=== PATIENT | male | born 1975 | race Caucasian/White ===

== ENCOUNTER 2018-01-22 07:30 | Emergency (ER) | payer BC, SELFPAY ==
--- NOTE | 2018-01-22 08:50 | DI.COMBO_ITS ---
SYMPTOMS/DIAGNOSIS: TRAUMA S/P FALL NONCONTRAST HEAD CT: There is opacification of the right frontal sinus and mucosal thickening and partial opacification of multiple ethmoid sinuses, as well as the maxillary sinuses. The findings are consistent with chronic sinus disease. The mastoid air cells appear clear. No intracranial hemorrhage, mass or infarct is seen. There is no evidence of skull fracture. The ventricles are normal in size. IMPRESSION: Sinus disease. No acute abnormality. CT OF THE CERVICAL SPINE: There is no evidence of fracture or subluxation. There has been an anterior fusion at the C6-7 level with hardware in place. The remaining disc spaces are well maintained. There is no paraspinal hematoma. IMPRESSION: Previous anterior cervical fusion at C6-7. No acute abnormality. LEFT WRIST: There is a nondisplaced fracture extending through the radial styloid to the articular surface toward the ulnar aspect. The distal ulna appears intact. There is a small bony fragment seen on the lateral view posterior at the carpal region. This could represent an avulsion fracture of indeterminate age. IMPRESSION: Nondisplaced intraarticular fracture of the distal radius. Small fracture fragment of the dorsal carpal region of indeterminate age. CT OF THE CHEST, ABDOMEN AND PELVIS: CHEST: There is no evidence of pneumothorax, pleural or pericardial effusions. There is mild posterior atelectasis. No rib fractures or spinal fractures are seen. The heart size is normal. ABDOMEN AND PELVIS: A noncontrast exam was performed. The liver, gallbladder, spleen, pancreas, kidneys and adrenals are unremarkable. There is no bowel dilatation or wall thickening. The appendix appears normal. The bladder and prostate are unremarkable. There is no free air or free fluid. No fractures are identified. IMPRESSION: No acute abnormality in the chest, abdomen or pelvis.
[2018-01-22] MEDS: Acetaminophen 500 MG TAB 1000 MG PO (08:55)
[2018-01-22] MEDS: oxyCODONE 10 MG TAB PO (09:20)
== END 2018-01-22 10:01 | disposition home or self-care (01) ==
LOC: ER 12:09
PROVIDERS: Emergency Provider Emergency Medicine; PCP Emergency Medicine
DX: S52.572A Other intraarticular fracture of lower end of left radius, initial encounter for closed fracture (principal); S09.90XA Unspecified injury of head, initial encounter; S29.9XXA Unspecified injury of thorax, initial encounter; S39.91XA Unspecified injury of abdomen, initial encounter; S16.1XXA Strain of muscle, fascia and tendon at neck level, initial encounter; W17.89XA Other fall from one level to another, initial encounter
CPT/HCPCS: 25600; 71250; 99285; 70450; 72125; 73110; 74176; 99284; L3908

== ENCOUNTER 2018-12-23 09:45 | Outpatient (CLI) | payer OTHER, SELFPAY ==
[2018-12-23 13:12] LABS: Anion Gap 9.4 mmol/L (3-11); BUN 17 mg/dL (7-18); CO2 26.6 mmol/L (21.0-32.0); CREATININE 0.96 mg/dL (0.70-1.30); Calcium 9.6 mg/dL (8.5-10.1); Chloride 102 mmol/L (98-107); Glucose 90 mg/dL (70-100); Potassium 4.5 mmol/L (3.5-5.1); Sodium 138 mmol/L (136-145)
== END 2018-12-23 10:05 ==
PROVIDERS: PCP Emergency Medicine; Visit Provider Emergency Medicine
DX: I10 Essential (primary) hypertension (principal)
CPT/HCPCS: 36415; 80048

== ENCOUNTER 2020-03-08 08:17 | Outpatient (CLI) | payer OTHER, SELFPAY ==
[2020-03-11 22:40] LABS: Patient Race White; SARS-CoV-2 RNA Undetected (Undetected); SARS-CoV-2 Specimen Source Nasopharynx
== END 2020-03-08 08:37 ==
PROVIDERS: PCP Emergency Medicine; Visit Provider Surgery
DX: Z11.59 Encounter for screening for other viral diseases (principal)
CPT/HCPCS: U0003

== ENCOUNTER 2020-03-29 01:34 | Outpatient (CLI) | payer OTHER, SELFPAY ==
[2020-03-29 12:43] LABS: Anion Gap 9.3 mmol/L (3-11); BUN 19 mg/dL (7-18); CO2 28.7 mmol/L (21.0-32.0); CREATININE 1.03 mg/dL (0.70-1.30); Calcium 9.5 mg/dL (8.5-10.1); Chloride 102 mmol/L (98-107); Glucose 99 mg/dL (74-106); Potassium 4.7 mmol/L (3.5-5.1); Sodium 140 mmol/L (136-145)
== END 2020-03-29 01:54 ==
PROVIDERS: PCP Nurse Practitioner Adult Health; Visit Provider Nurse Practitioner Adult Health
DX: I10 Essential (primary) hypertension (principal)
CPT/HCPCS: 36415; 80048

== ENCOUNTER 2020-04-18 08:43 | Emergency (ER) | payer OTHER, SELFPAY ==
[2020-04-18 08:53] VITALS: BP 153/98; PULSE 95; RESP 18; TEMP 36.4; O2SAT 99
--- NOTE | 2020-04-18 09:00 | DI.CT_ITS ---
EXAM: CT LUMBAR SPINE WO CLINICAL HISTORY: severe low back pain, prior surgery remote, L2 lt. TECHNIQUE: Imaging Protocol: Axial computed tomography images with coronal and sagittal reformatted images were created and reviewed CONTRAST MATERIAL: Intravenous: No IV contrast Oral: No oral contrast COMPARISON: MR MRI - LUMBAR SPINE WO CONTRAST from 02/19/2011 FINDINGS: Bones: There is no evidence of fracture. No lytic osseous lesions. With respect to the individual l evel; T12-L1: No disc herniation or central canal stenosis. No obvious foraminal stenosis. No facet arth ropathy. L1-2: No disc herniation or central canal stenosis. L2-3: No disc herniations or bulges are present. L3-4: Normal disc height. There is relatively symmetrical annular bulging without dominant disc pro trusion. There is mild central spinal canal stenosis. There is no significant foraminal stenosis on the right side. Mild foraminal stenosis on the left side. No significant facet arthropathy. L4-5: Normal disc height. There is annular bulging and there is a xcwtvmj-cjak-cuosf disc protrusio n, more evident on the axial than on the sagittal images. Mild bilateral foraminal stenosis. There is moderate central spinal canal stenosis.. Mild facet degenerative changes. L5-S1: At this level there is advanced chronic disc space narrowing and vacuum phenomenon seen withi n the small amount of retained remaining disc material. There also appears to be evidence of probabl e right sided partial laminectomy.. Mild central canal stenosis. No obvious disc herniation evident at this level. There is bilateral vertical foraminal stenosis due to the disc height loss here, thi s resulted in significant compression of the exiting nerve roots bilaterally. Soft Tissues: The visualized SI joints and sacrum are will maintained. The paraspinal soft tissues a re unremarkable. IMPRESSION: 1. There appears to be a cucvlwa-ndhe-toqjc disc herniation at L4-5 level, more evident on the axial than sagittal images. Recommend follow-up MRI. 2. There is an element of spinal canal stenosis at L3-4 and L4-5 levels, most evident at L4-5 where t here is also an element of bilateral mild foraminal stenosis. 3. At L5-S1 level there is significant bilateral vertical foraminal stenosis due to advanced chronic disc height loss at this level, this resulting in compression of the exiting nerve roots by the overl nereida L5 pedicles and subjacent annulus. 4. There is subtle evidence of prior possible partial laminectomy on the right side at L5-S1 level. Also mild central canal stenosis at this level. RADIATION DOSE DELIVERED: 672.19mGy.cm Total DLP DATA REPOSITORY: All CT scans at this facility are submitted to the National Radiology Data Registry (NRDR) Dose Index Registry (DIR) with the [employer] (ACR). RADIATION OPTIMIZATION: All CT scans at this facility use at least one of these dose optimization te chniques: automated exposure control; mA and/or kV adjustment per patient size (includes targeted exa ms where dose is matched to clinical indication); or iterative reconstruction.
--- NOTE | 2020-04-18 09:07 | W.ED.GENAD ---
Discharge Plan Disposition Patient Disposition: HOME Condition: Stable Discharge Details Clinical Impression: Low back pain, Spasm of back muscles Primary Care Provider: Nannette Ascencio ED Provider: Enoc Ambrocio Home Meds and New Rx's Prescriptions: New diazepam [Valium] 5 mg tablet 2.5 mg PO BID PRN (Reason: muscle spasm) Qty: 14 RF: 0 Continued ibuprofen 200 MG tablet 800 mg PO TID PRNRF: 0 amlodipine 5 mg tablet 5 mg PO DAILY Qty: 90 RF: 3 losartan 50 mg tablet 50 mg PO DAILY Qty: 90 RF: 3 Discharge Instructions Instructions: Diazepam (By mouth), Lumbar Disc Herniation (ED) Additional Instructions: Please take ibuprofen over the counter. Take 600mg by mouth every 6 hours as needed for pain. Please take acetaminophen (tylenol) - 650mg every 6 hours by mouth as needed for pain. Use ysmd-qou-nyeywnp lidocaine patch? dose according to label. Please follow-up with your orthopedic spinal specialist. Be sure to discuss CT imaging results. Call on Wednesday. Please contact your primary care physician to arrange follow-up. Return to the ER for any worsening or new concerning symptoms. Referrals: Nannette Ascencio, ELECT[employer] MAINTENANCE WORKER [Primary Care Provider] - Medical Decision Making 44-year-old male status post remote lumbar spinal surgery with atraumatic low back pain over the past 1 week now with spasm and tenderness left lumbar paraspinal. Neurologically intact with no saddle anesthesia. No bowel or bladder dysfunction. Given prior surgery and severity of pain, consider disc herniation. Toradol 30 mg IM, lidocaine patch, Tylenol 650 mg, and Valium 5 mg orally provided for pain and spasm. CT of the lumbar spine reviewed and interpreted by radiology:FINDINGS: Vertebrae: No acute fracture. Mild retrolisthesis of L5 on S1. L5-S1 shows generalized disc bulge, marginal osteophytes, disc height loss, vacuum disc, and endplate sclerosis. There is probable moderate to severe neural foraminal narrowing bilaterally. L1-L2: L1-L2 shows no significant spinal stenosis or neural foraminal narrowing. L2-L3: L2-L3 shows no significant spinal stenosis or neural foraminal narrowing. L3-L4: L3-L4 shows generalized disc bulge and mild marginal osteophyte with mild facet degenerative changes. There is mild right and tphw-pq-dofbzxta left neural foraminal narrowing and mild spinal stenosis. L4-L5: L4-L5 shows generalized disc bulge, facet degenerative changes, and thickening of ligamentum flavum. There is aqiz-hg-gciyeory bilateral neural foraminal narrowing and at least moderate spinal stenosis L5-S1: Mild retrolisthesis of L5 on S1. L5-S1 shows generalized disc bulge, marginal osteophytes, disc height loss, vacuum disc, and endplate sclerosis. There is probable moderate to severe neural foraminal narrowing bilaterally. Soft tissues: IMPRESSION: 1. No acute fracture. 2. Degenerative changes as described. More detailed evaluation could be accomplished with MRI if desired. Patient reassessed and noted improvement in pain. Plan for discharge with outpatient follow-up with a spinal specialist. CT results were reviewed with and provided to the patient. I will prescribe Valium and encouraged him to use lidocaine patches and NSAID. Usual customary discharge instructions were reviewed with patient and his . HPI General Mode of arrival: ambulatory. Date/Time Provider Initiated Documentation: 04/18/20 09:02. Limitations to Documentation: no limitations. Information obtained by: patient. HPI Narrative: 44-year-old male with history of hypertension, prior lumbar go, status post remote lumbar spinal surgery, here with back pain persistent over the past 1 week. Pain is localized to lumbar spine and slightly worse on the left side. Pain is severe and worse when he bends over and moving from lying to sitting position. He has no associated numbness or tingling of his lower extremities. No bowel or bladder abnormality. No fever. Related Data Home Medications Medication Instructions Recorded Confirmed ibuprofen 800 mg PO TID PRN 10/12/12 04/18/20 amlodipine 5 mg tablet 5 mg PO DAILY #90 tab 12/12/19 04/18/20 losartan 50 mg tablet 50 mg PO DAILY #90 tab 02/06/20 04/18/20 diazepam [Valium] 2.5 mg PO BID PRN #14 tab 04/18/20 Previous Rx's Medication Instructions Recorded amlodipine 5 mg tablet 5 mg PO DAILY #90 tab 12/12/19 losartan 50 mg tablet 50 mg PO DAILY #90 tab 02/06/20 diazepam [Valium] 2.5 mg PO BID PRN #14 tab 04/18/20 Allergies Allergy/AdvReac Type Severity Reaction Status Date / Time No Known Drug Allergies Allergy Verified 04/18/20 09:01 General Stated Complaint: Nk/Back Pain SAMM: 3 Review of Systems All systems reviewed & are unremarkable except as noted in HPI and below Musculoskeletal Musculoskeletal: Reports as per HPI Neurologic Neurologic: Reports as per HPI [facility] Medical History Carpal tunnel syndrome (06/06/13) CSD (cat scratch disease) (04/13/13) Knee pain Lumbago L4-5, S1 DISC; FUSED; S/P EPIDURAL Surgical History H/O lymph node biopsy L axillary; r/o lymphoma; +cat scratch fever History of back surgery L4-5, L5-S1 Disc Herniation. S/P Epidural, Known disc extrusion on MRI 2010; Dr. Edmonds, [facility] History of carpal tunnel release R (dominant side) S/P cervical spinal fusion (12/07/17) c6-c7 2014; Dr. Edmonds [facility] [place] teeth extracted Family History Mother No problems noted. Sister No problems noted. Son No problems noted. Father Hypertension Social History Smoking/Tobacco Use Status: Former Tobacco Use Pack-years: 10 Tobacco: How many years used: 10 Smoking risk assessment performed?: Yes Alcohol Intake: current Alcohol Intake frequency: a few times a week Drug use: Never Substance use type: does not use Caregiver/Support person: No Foster care: No Household members: spouse and children Housing: house Number of Children: 1 Do you need help understanding health information?: Never current occupation: [employer] Pets and animals: Yes Pets and animals: cat(s) and dog(s) Sexually active: Yes Do you think of yourself as: straight/heterosexual Current gender identity: male What is your relationship status?: How often do you talk on the phone with friends or family?: three or more times per week How often do you get together with friends or relatives?: three or more times per week How often do you attend episcopalian or zoroastrianism services?: decline to answer Do you belong to any clubs or organized social groups?: no Panel score (0-1 are the most socially isolated patients): 2 What type of physical activity do you participate in: weight lifting Duration: 15-30 minutes/day Frequency: 1-2 times per week Nadia/Congregation: None Special nadia needs: No Seatbelt use: always Drive intox or ride w/intox six horse hitch driver: No Do you feel safe at home: Yes Do you feel safe in your relationship?: Yes Exam Const General: cooperative and no acute distress HENMT Mouth: moist mucous membranes Eyes Conjunctivae: normal conjunctivae Resp Auscultation: clear to auscultation bilaterally, no rales, no rhonchi and no wheezes Cardio Rate: regular rate and not tachycardic Rhythm: regular rhythm GI Palpation: soft, not firm, not rigid and nontender Back/Spine/Pelvis Back: No erythema, No warmth and No ecchymosis Thoracic/Lumbar Spine: paraspinal tenderness (left lumbar), No thoracic spinal tenderness, lumbar spinal tenderness (L2) and other (spasm left lumbar) Skin General skin exam: no rashes or lesions noted Neuro General: patient alert, patient awake, patient oriented x3 and tone normal Cognition: normal cognition Motor: strength 5/5 throughout (bilateral LEs) Sensory Exam: no sensory deficits noted (bilateral LEs) and other (no saddle anesth) Extrem General: no edema Psych Appearance: grossly normal Mental Status: mental status grossly normal Course Vital Signs Vital signs: Vital Signs Temperature 36.4 C L 04/18/20 08:53 Pulse 95 H 04/18/20 08:53 Respiratory Rate 18 04/18/20 08:53 Blood Pressure 153/98 H 04/18/20 08:53 Pulse Oximetry 99 04/18/20 08:53 Temperature 36.4 C L 04/18/20 08:53 Temperature Source Temporal Artery Scan 04/18/20 08:53 Pulse 95 H 04/18/20 08:53 Respiratory Rate 18 04/18/20 08:53 Respiratory Effort Non-Labored 04/18/20 08:57 Blood Pressure 153/98 H 04/18/20 08:53 Blood Pressure Position Standing 04/18/20 08:53 Pulse Oximetry 99 04/18/20 08:53 Oxygen Delivery Method Room Air 04/18/20 08:53 Oxygen Flow Rate 0 04/18/20 08:53 Pain Level 10 04/18/20 08:53
[2020-04-18] MEDS: diazePAM 5 MG TAB PO ×2 (09:09→11:11)
[2020-04-18] MEDS: Acetaminophen 325 MG TAB 650 MG PO (09:09)
[2020-04-18] MEDS: Ketorolac 30 MG/ML VIAL IM (09:11)
[2020-04-18] MEDS: Lidocaine 5% Patch 1 PATCH TP (09:13)
--- NOTE | 2020-04-18 10:07 | DI.VRAD_ITS ---
PROCEDURE INFORMATION: Exam: CT Lumbar Spine Without Contrast Exam date and time: 04/18/2020 9:04 AM Age: 44 years old Clinical indication: Low back pain; Patient HX: Increase in strenuous activity recently TECHNIQUE: Imaging protocol: Computed tomography images of the lumbar spine without contrast. Radiation optimization: All CT scans at this facility use at least one of these dose optimization techniques: automated exposure control; mA and/or kV adjustment per patient size (includes targeted exams where dose is matched to clinical indication); or iterative reconstruction. COMPARISON: No relevant prior studies available. FINDINGS: Vertebrae: No acute fracture. Mild retrolisthesis of L5 on S1. L5-S1 shows generalized disc bulge, marginal osteophytes, disc height loss, vacuum disc, and endplate sclerosis. There is probable moderate to severe neural foraminal narrowing bilaterally. L1-L2: L1-L2 shows no significant spinal stenosis or neural foraminal narrowing. L2-L3: L2-L3 shows no significant spinal stenosis or neural foraminal narrowing. L3-L4: L3-L4 shows generalized disc bulge and mild marginal osteophyte with mild facet degenerative changes. There is mild right and hgbh-ns-rvzeqggq left neural foraminal narrowing and mild spinal stenosis. L4-L5: L4-L5 shows generalized disc bulge, facet degenerative changes, and thickening of ligamentum flavum. There is fcmz-ul-pwpntaxz bilateral neural foraminal narrowing and at least moderate spinal stenosis L5-S1: Mild retrolisthesis of L5 on S1. L5-S1 shows generalized disc bulge, marginal osteophytes, disc height loss, vacuum disc, and endplate sclerosis. There is probable moderate to severe neural foraminal narrowing bilaterally. Soft tissues: IMPRESSION: 1. No acute fracture. 2. Degenerative changes as described. More detailed evaluation could be accomplished with MRI if desired. Dictated and Authenticated by: Gayathri Parisi MD. Ordering:PHONG Stubbs MD
== END 2020-04-18 11:00 | disposition home or self-care (01) ==
PROVIDERS: Emergency Provider Student in an Organized Health Care Education/Training Program; PCP Nurse Practitioner Adult Health
DX: M62.830 Muscle spasm of back (principal); M54.5 Low back pain; I10 Essential (primary) hypertension
CPT/HCPCS: 96372; 99284; 72131; J1885

== ENCOUNTER 2020-04-22 11:31 | Outpatient (CLI) | payer OTHER, SELFPAY ==
--- NOTE | 2020-04-22 08:15 | DI.MRI_ITS ---
EXAM: MR LUMBAR SPINE WO/W CLINICAL HISTORY: spinal stenosis, worsening pain,h/o lumbar surgery, ? hnp. TECHNIQUE: Multiplanar multisequence MRI was performed. COMPARISON: MR MRI - LUMBAR SPINE WO CONTRAST from 02/19/2011 FINDINGS: MR examination lumbosacral spine was performed according to the usual protocol with additional pre an d post contrast T1 fat sat imaging in axial and sagittal planes. There is a prior right laminectomy at L5-S1. There are mild Shayy discal vertebral signal changes at L5-S1 and loss of disc height at this level as well. There is slight retrolisthesis of L5 on S1. Th is causes slight deformity of the contour of the anterior spinal canal without evidence focal nerve r oot impingement. There is mild bilateral neural foraminal narrowing at L5-S1. Moderate bilateral fa cet hypertrophy also noted at this level. At L4-5, there is a prominent disc bulge with apparent mild superimposed central disc herniation. Th ere is mild central canal spinal stenosis at this level. No significant neural foraminal stenosis se en. At L3-4, there is a moderate disc bulge without evidence of a focal disc herniation. No bony central canal spinal stenosis or neural foraminal stenosis. No significant findings seen at the upper lumbar or lower thoracic levels. Conus medullaris appears intact. No enhancing lesion identified on post contrast imaging. No evidence of abscess or osteomyelitis. IMPRESSION: Post-laminectomy changes, with mild bilateral neural foraminal narrowing at L5-S1. Disc bulge and small central disc herniation with mild central canal spinal stenosis at L4-5. No other significant findings. DATA REPOSITORY:
[2020-04-22 13:00] LABS: CREATININE 1.04 mg/dL (0.70-1.30)
[2020-04-22] MEDS: Normal Saline Flush 10 ML SYR IVP (13:16)
[2020-04-22] MEDS: Gadoterate meglumine 20 ML VIAL 17 ML IVP (13:16)
== END 2020-04-22 11:51 ==
PROVIDERS: PCP Nurse Practitioner Adult Health; Visit Provider Surgery
DX: M48.061 Spinal stenosis, lumbar region without neurogenic claudication (principal); M51.26 Other intervertebral disc displacement, lumbar region; M48.07 Spinal stenosis, lumbosacral region; Z01.818 Encounter for other preprocedural examination; M54.5 Low back pain
CPT/HCPCS: 72158; 82565

== ENCOUNTER 2020-08-29 01:51 | Outpatient (CLI) | payer OTHER, SELFPAY ==
[2020-08-30 16:18] LABS: COVID-19 RT-PCR UVMMC Result Negative (Negative)
== END 2020-08-29 01:52 | disposition home or self-care (01) ==
LOC: LBO 01:51
PROVIDERS: PCP Nurse Practitioner Adult Health; Visit Provider Surgery
DX: Z20.822 Contact with and (suspected) exposure to COVID-19 (principal)
CPT/HCPCS: U0003

== ENCOUNTER 2021-01-03 02:05 | Outpatient (CLI) | payer OTHER, SELFPAY ==
[2021-01-03 13:24] LABS: BUN 12 mg/dL (7-18); Calcium 9.3 mg/dL (8.5-10.1); Chloride 105 mmol/L (98-107); Glucose 95 mg/dL (74-106); Potassium 4.4 mmol/L (3.5-5.1); Sodium 140 mmol/L (136-145)
== END 2021-01-03 02:06 | disposition home or self-care (01) ==
LOC: LOS 02:06
PROVIDERS: PCP Nurse Practitioner Adult Health; Visit Provider Nurse Practitioner Adult Health
DX: I10 Essential (primary) hypertension (principal); R79.89 Other specified abnormal findings of blood chemistry
CPT/HCPCS: 36415; 80048

== ENCOUNTER 2021-04-05 08:53 | Outpatient (CLI) | payer OTHER, SELFPAY ==
[2021-04-06 15:03] LABS: COVID-19 RT-PCR UVMMC Result Negative (Negative)
== END 2021-04-05 08:54 | disposition home or self-care (01) ==
PROVIDERS: PCP Nurse Practitioner Adult Health; Visit Provider Surgery
DX: Z20.822 Contact with and (suspected) exposure to COVID-19 (principal)
CPT/HCPCS: U0003

== ENCOUNTER 2021-04-30 09:14 | Outpatient (CLI) | payer OTHER, SELFPAY ==
[2021-04-30 11:45] LABS: Source Nasal/Nares
[2021-04-30 12:29] LABS: COVID-19 PCR Negative (Negative)
== END 2021-04-30 09:15 | disposition home or self-care (01) ==
LOC: LBO 09:14
PROVIDERS: PCP Nurse Practitioner Adult Health; Visit Provider Surgery
DX: Z20.822 Contact with and (suspected) exposure to COVID-19 (principal); R05.9 Cough, unspecified
CPT/HCPCS: 87635

== ENCOUNTER 2021-06-27 01:20 | Outpatient (CLI) | payer BC, SELFPAY ==
[2021-06-27 11:20] LABS: Source Nasal/Nares
[2021-06-27 13:51] LABS: COVID-19 PCR Negative (Negative)
== END 2021-06-27 01:21 | disposition home or self-care (01) ==
LOC: LBO 01:20
PROVIDERS: PCP Nurse Practitioner Adult Health; Visit Provider Surgery
DX: Z20.822 Contact with and (suspected) exposure to COVID-19 (principal); Z01.818 Encounter for other preprocedural examination
CPT/HCPCS: 87635

== ENCOUNTER 2021-06-30 06:19 | Day surgery (SDC) | payer BC, SELFPAY ==
[2021-06-30 06:34] VITALS: BP 127/82; PULSE 67; RESP 18; TEMP 36.6; O2SAT 98
--- NOTE | 2021-06-30 06:37 | COLE_ITS ---
Colonoscopy Report Date of procedure: 06/30/21 Pre-op diagnosis general: Colon Cancer Screening Post-op diagnosis procedure note: other (colorectal polyps) Procedure: Colonoscopy with polypectomy Surgeon: Karen Ceron Anesthesia Type: General:No Airway (Jaylin Calderon CRNA) Estimated blood loss (mL): 3 Pathology: other (Transverse polyp and rectal polyp) Complications: None Disposition: same day Indications: The patient is here for Colonoscopy pre-op. He has no family hi story of colon cancer. He has not had any bowel habit changes. -Discussed colonoscopy bowel prep as well as the procedure. Discussed possible complications of the procedure to include bleeding, pain, perforation, missed small lesion/polyp, sore throat, aspiration and adverse reaction to the medications. Questions were answered to patient?s satisfaction. No guarantees were implied or given. Prep: Miralax/Dulcolax Procedure Start Time: 07:29 Procedure End Time: 07:51 Retraction Time: 12 minutes Findings: 2 small polyps Procedure Description: After informed consent was obtained the patient was taken to the procedure room and placed in a left decubitous position. Monitors were applied and a time out was done. The patients name, date of , procedure, allergies to medications and metal in their body was reviewed. The patient was then sedated. Once sedated and comfortable a rectal exam was done. External exam was normal. Internal exam revealed a normal sphincter tone and no palpable masses. The prostate felt smooth and slightly enlarged. The scope was then introduced and retro-flexed. No internal hemorrhoids, polyps or masses were identified on retro-flexion. The scope was then advanced to the cecum without difficulty. The ileocecal valve and appendiceal orifice were identified. The prep was adequate. The scope was then slowly retracted over [] minutes back into the rectum. Polyps were removed with cold forceps in the Transverse colon and rectum. There was no diverticulosis noted. The scope was removed and the patient was woken up and taken back to Same day surgery in s table condition. The patient tolerated the procedure well and there were no immediate complications. Follow up: The patient should follow up in 5 years unless they develop changes in bowel habits or other new gastrointestinal complaints.
--- NOTE | 2021-06-30 06:38 | W.PM.DSUDISC ---
Discharge Plan Disposition Patient Disposition: HOME Condition: Good Discharge Details Reason For Visit: Colonoscopy Attending Provider: Karen Ceron Primary Care Provider: Nannette Ascencio Home Meds and New Rx's Prescriptions: Continued amlodipine 10 mg tablet 10 mg PO HS Qty: 90 RF: 3 losartan 50 mg tablet 50 mg PO DAILY Qty: 90 RF: 3 loratadine 10 mg tablet 10 mg PO DAILY Qty: 90 RF: 1 Discontinued polyethylene glycol 3350 17 gram/dose powder 238 g PO ONCE Qty: 238 RF: 0 bisacodyl [Dulcolax (bisacodyl)] 5 mg tablet,delayed release (DR/EC) 5 mg PO ONCE Qty: 4 RF: 0 Discharge Instructions Instructions: Colorectal Polyps (DC) Additional Instructions: Findings: 2 small polyps Follow up: most likely 5 years Please call if you develop: fevers >101.5 Nausea or Vomiting Abdominal pain that is not transient Rectal bleeding that is more then a tbsp A hard abdomen and inability to pass gas DAY SURGERY UNIT POST ENDOSCOPY INSTRUCTIONS Instructions for everyone who is given Anesthesia: For your safety, please do the following for the next 24 Hours: a. Do not drive or operate dangerous equipment b. Do not drink alcohol beverages or use any recreational drugs for the first 24 hours or while taking pain medications. The medications in your body may have a reaction that can be dangerous. c. Do not make any important decisions or sign any important papers 1. Generally there are no restrictions on your activity after a day or so has gone by, but you may feel a bit fatigued for a few days. 2. After you arrive home you may have a light meal and return to a normal diet as you can tolerate it without feeling sick to your stomach. 3. After surgery, you may feel pain or discomfort. This should be only transient, but if it persists please contact your doctor. 4. If there are any questions regarding the findings of your procedure, please feel free to contact your doctor. 6. If you are unable to contact your doctor with a problem, contact the hospital at [phone]. 7. Continue all your regular medications unless directed otherwise. I understand the above instructions and have no questions. Signature of Patient or Responsible Adult Escort Date/Time Name of Responsible Adult Escort Signature of Nurse Date/Time Activity:: Activity as Tolerated Diet:: As Tolerated Discharge Orders Discharge Orders: Discharge Order (Routine); Ordered 06/30/21 Ordered By: Karen Ceron
[2021-06-30] MEDS: Lactated Ringers 1,000 ML 80 ML IV (06:45)
--- NOTE | 2021-06-30 06:58 | W.ANESPRE ---
General Info Date of Service Date Performed: 06/30/21 Height: 5 ft 10 in Weight: 89.3 kg Body Mass Index (BMI): 28.2 Surgical Procedure: Operation Date: 06/30/21 07:35 Proposed Procedures Side Surgeon p Colonoscopy Karen Ceron MD Meds Allergies and Home Medications Allergies Allergy/AdvReac Type Severity Reaction Status Date / Time No Known Drug Allergies Allergy Verified 06/26/21 11:58 Home Medication Medication Instructions Recorded amlodipine 10 mg tablet 10 mg PO HS #90 tab 05/30/21 loratadine 10 mg tablet 10 mg PO DAILY #90 tab 05/30/21 losartan 50 mg tablet 50 mg PO DAILY #90 tab 05/30/21 bisacodyl 5 mg tablet,delayed 5 mg PO ONCE #4 tab 06/12/21 release polyethylene glycol 3350 17 238 g PO ONCE #238 g 06/12/21 gram/dose oral powder Current Visit Medications: Current Medications Generic Name Dose Route Start Last Admin Trade Name Freq PRN Reason Stop Dose Admin Hyoscyamine Sulfate 0.125 mg 06/30/21 06:38 Hyoscyamine 0.125 Mg Sl/Oral/Chew SL DIRECTED PRN Ringer's Solution 1,000 mls @ 80 mls/hr 06/30/21 06:00 06/30/21 06:45 IV 07/27/21 23:59 80 mls/hr INFUSION ANAND Administration IV Miscellaneous Supplies 1 each 06/30/21 06:00 Iv Access IV 07/27/21 23:59 DIRECTED ANAND Ondansetron HCl 4 mg 06/30/21 06:38 Ondansetron 4 Mg/2 Ml Vial IVP Q4H PRN PRN Nausea / Vomiting Sodium Chloride 0 ml 06/30/21 06:00 Normal Saline Flush 10 Ml Syr IV 07/27/21 23:59 PRN PRN Sodium Chloride 0 ml 06/30/21 06:00 Normal Saline 10 Ml Vial IJ 07/27/21 23:59 DIRECTED PRN Sterile Water 0 ml 06/30/21 06:00 Water,Injection,Sterile 10 Ml Vial IJ 07/27/21 23:59 DIRECTED PRN PFSH Active Problems Active Problems: Problem Status Onset Code Screening for colon cancer Z12.11 Hypertension I10 Medical History Medical History Abnormal MRI, lumbar spine 2019 bulging discs distal lumbar spine; medrol dose pack x2 effective Carpal tunnel syndrome (06/06/13) CSD (cat scratch disease) (04/13/13) Elevated BUN Knee pain Lumbago L4-5, S1 DISC; FUSED; S/P EPIDURAL; chronic intermittent; Neuro-surg Dr. Edmonds; Medrol dose pack x2 worked for management 03/2020 Surgical History Surgical History H/O lymph node biopsy L axillary; r/o lymphoma; +cat scratch fever History of back surgery L4-5, L5-S1 Disc Herniation. S/P Epidural, Known disc extrusion on MRI 2010; Dr. Edmonds, [facility] History of carpal tunnel release R (dominant side) S/P cervical spinal fusion (12/07/17) c6-c7 2014; Dr. Edmonds [facility] [place] teeth extracted Tobacco Smoking/Tobacco Use Status: Former Tobacco Use Tobacco: How many years used: 10 Passive smoking exposure: No Alcohol Alcohol Intake: current Alcohol intake frequency: a few times a week Substance Use Substance use: Never Substance use type: does not use Vital Signs and Lab Results Vital Signs Most Recent Vital Signs in EMR: Most Recent Vital Signs Temp Pulse Resp BP Pulse Ox 36.6 C 67 18 127/82 98 06/30/21 06:34 06/30/21 06:34 06/30/21 06:34 06/30/21 06:34 06/30/21 06:34 Lab Results Blood Type / Crossmatch: No Data to Display Complete Blood Count: No Data to Display Complete Metabolic Panel: No Data to Display Liver Function Panel: No Data to Display Coagulation Panel: No Data to Display Cardiac Panel: No Data to Display Arterial Blood Gas: No Data to Display Venous Blood Gas: No Data to Display Pancreas Panel: No Data to Display Thyroid Panel: No Data to Display Infectious Disease: Coronavirus (COVID-19)(PCR) Negative (Negative) 06/27/21 08:30 06/27/21 Coronavirus 2019 Source Nasal/Nares 06/27/21 08:30 06/27/21 Blood Cultures: No Data to Display Toxicology Panel: No Data to Display Anesthesia Assessment and Plan Anesthesia History Personal History: No History of Anesthesia Complications Family History: No Family History of Anesthesia Complications Exercise Tolerance Exercise Tolerance: Metabolic Equivalents>4 Pertinent Negatives Pertinent Negatives: No Major Cardiovascular Symptoms or Complaints and No Major Pulmonary Symptoms or Complaints Cardiac & Pulmonary Exam Cardiac Exam: Normal S1/S2 Heart Sounds Pulmonary Exam: Clear Bilateral Breath Sounds Implantable Cardiac Device Does patient have a Pacemaker or an ICD?: No Airway Exam Known Difficult Airway: No Mallampati Class: 2 Mouth Opening: Normal (> 3cm) Thyromental Distance: Greater than 3 cm Neck Range of Motion: Full ROM Neck Circumference: Normal Teeth Condition: Normal Dentition ASA Classification ASA Score: ASA 2 Emergency Case?: No NPO Status NPO Status: NPO Clears >2 hours, Solids >8 hours Anesthesia Plan Resuscitation Status: Full Code Anesthesia Technique: General Anesthesia Airway Planned: Natural Airway Monitors Used: Standard Monitors Preoperative Comments:: First colonoscopy. Reports no difficulty mobilizing neck. Well controlled HTN.
[2021-06-30 07:01] VITALS: BMI 28.2
--- NOTE | 2021-06-30 07:40 | BOWEL_PTH ---
PATIENT: Mejia Palacios LOC: [facility] U#:[id number] AGE/SX: 45/M ROOM: RE06/30/[address]: Karen Ceron MD : 1975 BED: DIS: 06/30/2021 SPEC #: [id number] RECD: 06/30/21 12:29 STATUS: TIFFANY RE #: [id number] MEHDI: 06/30/21 07:[address]: Karen Ceron DEPT: Surgical Specimen RECD BY: Zoë Tan ENTERED: 06/30/21 12:29 SP TYPE: Bowel OTHR DR: Nannette Ascencio, [place] Tissues: 1 - BIOPSY BOWEL 2 - BIOPSY BOWEL Procedures: GROSS AND MICRO LEVEL 4 Comments: [id number]
[2021-06-30 08:01] VITALS: BP 100/69; PULSE 75; RESP 18; TEMP 36.3; O2SAT 95
--- NOTE | 2021-06-30 08:12 | W.ANESPOSTOP ---
Postoperative Evaluation Date, Time and Location Date Performed: 06/30/21 Time Performed: 08:12 Patient Location: Day Surgery Unit Vital Signs Most Recent Imported Vital Signs: Most Recent Vital Signs Temp Pulse Resp BP Pulse Ox 36.3 C L 75 18 100/69 95 06/30/21 08:01 06/30/21 08:01 06/30/21 08:01 06/30/21 08:01 06/30/21 08:01 Pain Score Most Recent Pain Score: Most Recent Pain Score Pain Level 0 06/30/21 08:01 Assessment Mental Status: Awake (Alert & Oriented to Patient Baseline) Airway and Respiratory Function: Patent airway with normal (patient baseline) respiratory exam Cardiovascular Function: Hemodynamically Stable Hydration Status: Adequately Hydrated Nausea & Vomiting: No Nausea or Vomiting Pain: Pt. Denies Any Pain Peripheral Nerve Block: Patient did not receive a nerve block
[2021-06-30 08:18] VITALS: BP 106/83; PULSE 68; RESP 16; TEMP 36.2; O2SAT 96
== END 2021-06-30 08:53 | disposition home or self-care (01) ==
PROVIDERS: PCP Nurse Practitioner Adult Health; Visit Provider Surgery
PROC: 0DJD8ZZ Inspection of Lower Intestinal Tract, Via Natural or Artificial Opening Endoscopic (ICD-10-PCS; CPT 45378; principal; 2021-06-30 07:30)
DX: Z12.11 Encounter for screening for malignant neoplasm of colon (principal); K62.1 Rectal polyp; K51.40 Inflammatory polyps of colon without complications
CPT/HCPCS: 45380; 88305; J2001

== ENCOUNTER 2021-09-12 06:56 | Emergency (ER) | payer BC, SELFPAY ==
[2021-09-12 07:00] VITALS: BP 152/88; PULSE 77; TEMP 36.5; O2SAT 100
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
[2021-09-12] MEDS: predniSONE 20 MG TAB 60 MG PO (07:59)
[2021-09-12] MEDS: Ketorolac 60 MG/2 ML VIAL IM (07:59)
[2021-09-12] MEDS: diazePAM 5 MG TAB PO (07:59)
== END 2021-09-12 08:23 | disposition home or self-care (01) ==
PROVIDERS: Emergency Provider Physician Assistant; PCP Nurse Practitioner Adult Health
DX: S16.1XXA Strain of muscle, fascia and tendon at neck level, initial encounter (principal); S29.011A Strain of muscle and tendon of front wall of thorax, initial encounter; S29.012A Strain of muscle and tendon of back wall of thorax, initial encounter; X58.XXXA Exposure to other specified factors, initial encounter
CPT/HCPCS: 96372; 99284; 99283; J1885; J7512

== ENCOUNTER 2022-05-22 03:09 | Outpatient (CLI) | payer BC, SELFPAY ==
[2022-05-22 13:28] LABS: ALT 33 U/L (16-63); AST 33 U/L (15-37); Alkaline Phosphatase 69 U/L (46-116); Anion Gap 6.3 mmol/L (3-11); BUN 13 mg/dL (7-18); Bilirubin, Total 0.4 mg/dL (0.2-1.0); CO2 28.7 mmol/L (21.0-32.0); Calcium 9.6 mg/dL (8.5-10.1); Calculated LDL 122 mg/dL (<100); Chloride 104 mmol/L (98-107); Cholesterol 205 mg/dL (<200); Estimated GFR 92.84 (mL/min/1.73m2); Glucose 102 mg/dL (74-106); HDL Cholesterol 75 mg/dL (40-60); Potassium 4.9 mmol/L (3.5-5.1); Sodium 139 mmol/L (136-145); Total Protein 7.6 g/dL (6.4-8.2); Triglyceride 42 mg/dL (<150)
[2022-05-23 13:58] LABS: HIV-1/2 Ag & Ab Screen Negative (Negative)
[2022-05-25 09:54] LABS: Hepatitis C Ab w Rflx HCV PCR Negative (Negative)
== END 2022-05-22 03:10 | disposition home or self-care (01) ==
LOC: LOS 03:09
PROVIDERS: PCP Nurse Practitioner Adult Health; Visit Provider Nurse Practitioner Adult Health
DX: I10 Essential (primary) hypertension (principal); Z13.220 Encounter for screening for lipoid disorders; Z11.4 Encounter for screening for human immunodeficiency virus [HIV]; Z11.59 Encounter for screening for other viral diseases
CPT/HCPCS: 36415; 80053; 80061; 86803; 87389

== ENCOUNTER 2023-08-26 04:58 | Outpatient (CLI) | payer BC, SELFPAY ==
[2023-08-26 12:48] LABS: Anion Gap 9.6 mmol/L (3-11); BUN 14 mg/dL (7-18); CO2 27.4 mmol/L (21.0-32.0); CREATININE 0.9 mg/dL (0.70-1.30); Calcium 9.3 mg/dL (8.5-10.1); Chloride 104 mmol/L (98-107); Glucose 96 mg/dL (74-106); Sodium 141 mmol/L (136-145)
[2023-08-26 12:55] LABS: Hemoglobin A1C 5.9 % (<5.7)
== END 2023-08-26 04:59 | disposition home or self-care (01) ==
LOC: LOS 04:59
PROVIDERS: PCP Nurse Practitioner Adult Health; Visit Provider Nurse Practitioner Adult Health
DX: R73.01 Impaired fasting glucose (principal); I10 Essential (primary) hypertension
CPT/HCPCS: 36415; 80048; 83036

== ENCOUNTER 2024-04-26 01:31 | Outpatient (CLI) | payer BC, SELFPAY ==
--- NOTE | 2024-04-26 08:13 | DI.RAD_ITS ---
Exam(s) XR CERVICAL SPINE COMP 4-5V EXAM: XR CERVICAL SPINE COMP 4-5V CLINICAL HISTORY: ? hardware issue; assess alignment,S/P FUSION,RADICULAR PAIN UPPER EXT,. TECHNIQUE: 2D digital imaging was performed. Five views were performed. COMPARISON: No exams were available for comparison FINDINGS: BONES: No fracture or destructive lesion. Vertebral bodies are unremarkable. Anterior fusion at C6- 7. Facet spurring causes mild neural foraminal narrowing at C4-5 and C5-6 on the left. There is mil d neural foraminal narrowing on the right at C5-6 secondary to small endplate osteophytes. DISKS: Moderate narrowing of the C5-6 disc space with small to moderate-sized endplate osteophytes. The intervertebral disc spaces are maintained. ALIGNMENT: Cervical spinal alignment is within normal limits. The odontoid and atlantoaxial articulat ions are normal. SOFT TISSUE: Normal. The lung apices are clear. IMPRESSION: Degenerative changes at C5-6. Mild bilateral neural foraminal narrowing. DATA REPOSITORY: RADIATION DOSE DELIVERED:
== END 2024-04-26 01:51 ==
LOC: DI 01:31
PROVIDERS: PCP Nurse Practitioner Adult Health; Visit Provider Nurse Practitioner Adult Health
DX: M48.02 Spinal stenosis, cervical region (principal); M99.41 Connective tissue stenosis of neural canal of cervical region
CPT/HCPCS: 72050

== ENCOUNTER 2024-08-25 01:07 | Outpatient (CLI) | payer BC, SELFPAY ==
[2024-08-25 12:41] LABS: Anion Gap 10.3 mmol/L (3-11); BUN 18 mg/dL (7-18); CO2 27.7 mmol/L (21.0-32.0); CREATININE 1.1 mg/dL (0.70-1.30); Calcium 9.7 mg/dL (8.5-10.1); Calculated LDL 122 mg/dL (<100); Chloride 102 mmol/L (98-107); Cholesterol 218 mg/dL (<200); Estimated GFR 81.78 (mL/min/1.73m2); Glucose 106 mg/dL (74-106); HDL Cholesterol 69 mg/dL (>or=40); Potassium 4.2 mmol/L (3.5-5.1); Sodium 140 mmol/L (136-145); Triglyceride 138 mg/dL (<150)
[2024-08-25 12:49] LABS: Hemoglobin A1C 5.7 % (<5.7)
== END 2024-08-25 01:08 | disposition home or self-care (01) ==
LOC: LOS 01:07
PROVIDERS: PCP Nurse Practitioner Adult Health; Visit Provider Nurse Practitioner Adult Health
DX: Z13.6 Encounter for screening for cardiovascular disorders (principal); I10 Essential (primary) hypertension; R73.01 Impaired fasting glucose
CPT/HCPCS: 36415; 80048; 80061; 83036